=== PATIENT | female | born 1955 | race Asian ===

== ENCOUNTER 2023-09-08 14:43 | Emergency (ER) | payer OTHER ==
[~2023-09-08] VITALS: Ht 167.6 cm; Wt 69.9 kg
[2023-09-08 14:50] VITALS: BP 121/72; PULSE 60; RESP 16; TEMP 98; O2SAT 98
[2023-09-08 15:18] VITALS: O2SAT 99
[2023-09-08] MEDS: ACETAMINOPHEN EXTRA STRENGTH 500 MG TAB PO ONE (15:25)
[2023-09-08] MEDS ORDERED: IBUP-1842 PO (16:41)
== END 2023-09-08 16:50 | disposition home or self-care (01) ==
LOC: MED 14:43
DX: S00.33XA Contusion of nose, initial encounter (principal); Z79.899 Other long term (current) drug therapy; W01.198A Fall on same level from slipping, tripping and stumbling with subsequent striking against other object, initial encounter; Y92.89 Other specified places as the place of occurrence of the external cause; Y93.89 Activity, other specified; Y99.8 Other external cause status
CPT/HCPCS: 70450; 70486; 99284